=== PATIENT | male | born 2000 | race Hispanic/Latino ===

== ENCOUNTER 2025-10-06 22:35 | Emergency (ER) | payer SELFPAY ==
[2025-10-07] MEDS ORDERED: Proparacaine 0.5% Opth 15 ML BOT ONE (01:59)
[2025-10-07] MEDS ORDERED: Fluorescein Opthalmic Strip ONE (01:59)
== END 2025-10-07 03:53 | disposition home or self-care (01) ==
LOC: ERS 22:35
DX: T15.01XA Foreign body in cornea, right eye, initial encounter (principal); V89.2XXA Person injured in unspecified motor-vehicle accident, traffic, initial encounter
CPT/HCPCS: 70450; 72125